=== PATIENT | male | born 1995 | race Caucasian/White ===

== ENCOUNTER 2016-07-03 22:16 | Emergency (ER) | payer OTHER ==
[2016-07-04 00:50] VITALS: BP 136/72
== END 2016-07-04 00:50 | disposition home or self-care (01) ==
LOC: ED 22:16
DX: J20.9 Acute bronchitis, unspecified (principal)
CPT/HCPCS: Q0092

== ENCOUNTER 2016-11-03 12:51 | Emergency (ER) | payer SELFPAY ==
[~2016-11-03] VITALS: Ht 167.6 cm; Wt 83.2 kg
[2016-11-03 16:15] VITALS: BP 141/93
== END 2016-11-03 16:15 | disposition home or self-care (01) ==
LOC: ED 12:51
DX: T22.20XA Burn of second degree of shoulder and upper limb, except wrist and hand, unspecified site, initial encounter (principal); X12.XXXA Contact with other hot fluids, initial encounter; Y93.89 Activity, other specified; Y99.8 Other external cause status; Y92.89 Other specified places as the place of occurrence of the external cause

== ENCOUNTER 2018-11-15 13:50 | Emergency (ER) | payer OTHER ==
[~2018-11-15] VITALS: Ht 167.6 cm; Wt 91.6 kg
[2018-11-15 13:55] VITALS: Ht 167.6 cm; Wt 91.6 kg
[2018-11-15 17:43] VITALS: BP 133/86
== END 2018-11-15 17:43 | disposition home or self-care (01) ==
LOC: ED 13:50
DX: J20.9 Acute bronchitis, unspecified (principal); J45.909 Unspecified asthma, uncomplicated
CPT/HCPCS: J7613

== ENCOUNTER 2018-11-29 15:25 | Emergency (ER) | payer OTHER ==
[~2018-11-29] VITALS: Ht 167.6 cm; Wt 92.5 kg
[2018-11-29 15:35] VITALS: BP 126/73; Ht 167.6 cm; Wt 92.5 kg
== END 2018-11-29 17:12 | disposition home or self-care (01) ==
LOC: ED 15:25
DX: S93.401A Sprain of unspecified ligament of right ankle, initial encounter (principal); J45.909 Unspecified asthma, uncomplicated; X50.1XXA Overexertion from prolonged static or awkward postures, initial encounter; Y93.67 Activity, basketball; Y92.89 Other specified places as the place of occurrence of the external cause; Y99.8 Other external cause status